=== PATIENT | female | born 1975 ===

== ENCOUNTER 2016-05-22 18:30 | Emergency (ER) | payer MEDICARE, OTHER ==
--- OUTSIDE RECORDS SUMMARY | 2016-05-22 19:20 | XMS REPORT | Continuity of Care Document ---
:1975 Author Organization [facility] [place] [address] Care Team Providers Name Role Phone Laura Mayberry Primary Care Provider [phone] Source Comments This disclosure is being made pursuant to the [employer] program and maynot contain all information available regarding this patient.[facility] Active Allergies and Adverse Reactions Allergen Noted Date Severity Reactions Comments Pcn 10/13/2015 High Hives Current Medications Be aware that medications may not be up to date as of this document. Alwaysverify current medications with the patient. Prescription Sig. Disp. Refills Start Date End Date Status montelukast Take 10 mg by Active (SINGULAIR) 10 MG mouth nightly. tablet albuterol (PROAIR Inhale 2 puffs Active HFA;PROVENTIL into the lungs HFA;VENTOLIN HFA) every 4 (four) 108 (90 BASE) hours as MCG/ACT inhaler needed for Wheezing. lisinopril Take 2.5 mg by Active (PRINIVIL,ZESTRIL) mouth daily. 2.5 MG tablet fenofibrate 160 MG Take 160 mg by Active tablet mouth daily. pantoprazole Take 40 mg by Active (PROTONIX) 40 MG mouth daily. tablet atorvastatin Take 40 mg by Active (LIPITOR) 40 MG mouth daily. tablet FLUoxetine (PROZAC) Take 20 mg by Active 20 MG capsule mouth daily. fluticasone 2 sprays by Active (FLONASE) 50 MCG/ACT Nasal route nasal spray daily. to each nostril latanoprost Place 1 drop Active (XALATAN) 0.005 % into both eyes ophthalmic solution nightly. fluPHENAZine Take 2.5 mg by Active (PROLIXIN) 2.5 MG mouth 2 (two) tablet times daily. insulin lispro Inject 12 Active (HUMALOG) 100 Units into the UNIT/ML injection - skin 3 (three) vial times daily with meals. insulin lispro Inject 2-12 Active (HUMALOG) 100 Units into the UNIT/ML injection - skin 4 (four) vial times daily before meals and nightly. 150-199=2 [id number]=1 [id number]=0 [id number]=3 [id number]=9 0 [id number] and higher=12 Units insulin glargine Inject 42 Active (LANTUS) 100 UNIT/ML Units into the injection - vial skin nightly. miconazole (MICOTIN) Apply to 71 g 0 05/11/2016 Active 2 % powder abdominal folds. propranolol Take 1 tablet 90 tablet 1 05/11/2016 Active (INDERAL) 10 MG by mouth 3 tablet (three) times daily. senna-docusate Take 1 tablet 60 tablet 1 05/11/2016 Active (SENNA PLUS) 8.6-50 by mouth 2 MG per tablet (two) times daily. hydrOXYzine Take 1 capsule 90 capsule 1 05/11/2016 Active (VISTARIL) 50 MG by mouth 3 capsule (three) times daily as needed for Anxiety. Indications: Sedation linagliptin Take 5 mg by 05/08/19 Discontinued (TRADJENTA) 5 MG mouth daily. 17 TABS tablet tiotropium (SPIRIVA) Place 18 mcg 05/08/19 Discontinued 18 MCG inhalation into inhaler 17 capsule and inhale daily. budesonide-formotero Inhale 2 puffs 05/08/19 Discontinued l (SYMBICORT) into the lungs 17 160-4.5 MCG/ACT 2 (two) times inhaler daily. cyclobenzaprine Take 10 mg by 05/08/19 Discontinued (FLEXERIL) 10 MG mouth 3 17 tablet (three) times daily as needed for Muscle spasms. senna-docusate Take 2 tablets 05/08/19 Discontinued 8.6-50 MG per tablet by mouth 17 nightly as needed for Constipation. vilazodone HCl Take 20 mg by 05/08/19 Discontinued (VIIBRYD) 20 MG TABS mouth daily. 17 tablet insulin detemir Inject 30 05/08/19 Discontinued (LEVEMIR) 100 Units into the 17 UNIT/ML injection - skin daily. vial insulin lispro Inject 10 05/08/19 Discontinued (HUMALOG) 100 Units into the 17 UNIT/ML injection - skin 2 (two) vial times daily. With lunch and supper Indications: Insulin-Depend ent Diabetes fluPHENAZine Take 2 tablets 60 tablet 1 10/20/2015 05/08/19 Discontinued (PROLIXIN) 1 MG by mouth 2 17 tablet (two) times daily. hydrOXYzine Take 1 capsule 120 capsule 1 10/20/2015 05/08/19 Discontinued (VISTARIL) 50 MG by mouth 4 17 capsule (four) times daily as needed for Anxiety. Indications: Sedation magnesium oxide Take 1 tablet 30 tablet 1 10/20/2015 05/08/19 Discontinued (MAG-OX) 400 (241.3 by mouth 17 MG) MG TABS tablet daily. quetiapine Take 1 tablet 30 tablet 1 10/20/2015 05/08/19 Discontinued (SEROQUEL) 200 MG by mouth Day 17 tablet One - 2100. traZODone (DESYREL) Take 1 tablet 30 tablet 1 10/20/2015 05/08/19 Discontinued 100 MG tablet by mouth 17 nightly. propranolol Take 1 tablet 90 tablet 1 10/20/2015 05/08/19 Discontinued (INDERAL) 10 MG by mouth 3 17 tablet (three) times daily. polyethylene glycol Take 17 g by 30 each 0 11/09/2015 05/08/19 Discontinued (GLYCOLAX) packet mouth daily. 17 fluPHENAZine Take 2.5 mg by 05/08/19 Discontinued (PROLIXIN) 2.5 MG mouth 3 17 tablet (three) times daily. Indications: Psychosis insulin lispro Inject 0-5 05/08/19 Discontinued (HUMALOG) 100 Units into the 17 UNIT/ML injection - skin 3 (three) vial times daily before meals. Indications: Insulin-Depend ent Diabetes buPROPion XL Take 300 mg by 05/11/19 Discontinued (WELLBUTRIN XL) 300 mouth every 17 MG 24 hr tablet morning. clonazePAM Take 0.5 mg by 05/08/19 Discontinued (KLONOPIN) 0.5 MG mouth 2 (two) 17 tablet times daily. clonazePAM Take 2 mg by 05/11/19 Discontinued (KLONOPIN) 2 MG mouth nightly. 17 tablet Active Problems Problem Noted Date MDD (major depressive disorder), severe ([facility]) 05/10/2016 Major depressive disorder, recurrent, severe without psychotic features 2015 ([facility]) COPD (chronic obstructive pulmonary disease) ([facility]) 10/14/2015 Diabetes ([facility]) 10/14/2015 Essential hypertension 10/14/2015 Most Recent Encounters Date Type Specialty Providers Description 03/22/2016 Data Import Immunizations Name Dates Previously Given Next Due PPD Test 11/06/2015 Social History Tobacco Use Types Packs/Day Years Used Date Current Every Day Smoker 0.5 5 Smokeless Tobacco: Never Used Tobacco Cessation:Ready to Quit: No Comments: Alcohol Use Drinks/Week oz/Week Comments No Last Filed Vital Signs Vital Sign Reading Time Taken Blood Pressure 126/82 05/11/2016 8:00 AM [facility] [employer] [facility] Pulse 84 05/11/2016 8:00 AM [employer] [facility] Temperature 36.1 C (97 F) 05/11/2016 8:00 AM [employer] [facility] Respiratory Rate 17 05/11/2016 8:00 AM [employer] [facility] Height 1.651 m (5' 5") 05/09/2016 4:57 AM [employer] [facility] Weight 113.6 kg (250 lb 7.1 oz) 05/09/2016 4:57 AM [employer] [facility] Body Mass Index 41.68 05/09/2016 4:57 AM [employer] [facility] Oxygen Saturation 94% 05/10/2016 9:16 AM [facility] [employer] [employer] [facility] Plan of Care Health Maintenance Due Date Last Done Comments Tetanus/Pertussis (1 - Tdap) 1993 Pap Smear 08/26/1995 Influenza Immunization (#1) 2015 Results from Last 3 Months POCT glucose (05/11/2016 8:22 AM)Only the most recent of11 resultswithin the time period is included. Component Value Range Glucose, POC 118(H) 70-99 mg/dL
--- OUTSIDE RECORDS SUMMARY | 2016-05-22 19:21 | XMS REPORT | Summary of Care ---
:1975 Author Organization Address [address] [place] [address]- Care Team Providers Name Role Phone CandieLaura carey Primary Care Physician Encounter Date(s): 09/07/15 - 09/07/15 [address] [place], [place] [address] Final: First degree hemorrhoids Final: Melena Final: Change in bowel habit Final: Diarrhea, unspecified Final: Type 2 diabetes mellitus without complications Discharge Disposition: 01 Discharged to Home or Self Care Attending Physician: Ignacio Pacheco DO Admitting Physician: Ignacio Pacheco DO Vital Signs Most recent to oldest [Reference 1 2 3 Range]: Temperature Temporal Artery [36-38 36.4 DegC 36.6 DegC DegC] (09/07/15 9:27 AM) (09/07/15 7:43 AM) Heart Rate Monitored [60-100 bpm] 95 bpm 101 bpm 98 bpm (09/07/15 9:54 AM) *HI* (09/07/15 9:35 AM) (09/07/15 9:40 AM) Respiratory Rate [12-20 br/min] 16 br/min 16 br/min 16 br/min (09/07/15 9:54 AM) (09/07/15 9:40 AM) (09/07/15 9:35 AM) SpO2 96 % 94 % 94 % (09/07/15 9:54 AM) (09/07/15 9:40 AM) (09/07/15 9:35 AM) SpO2 Location Right hand Right hand (09/07/15 9:54 AM) (09/07/15 7:43 AM) Blood Pressure [90-130/60-90 mmHg] 135/67mmHg 134/67mmHg 135/71mmHg *HI* *HI* *HI* (09/07/15 9:54 AM) (09/07/15 9:40 AM) (09/07/15 9:35 AM) Mean Arterial Pressure Monitor 87 mmHg 87 mmHg 93 mmHg Measure (09/07/15 9:40 AM) (09/07/15 9:35 AM) (09/07/15 9:30 AM) Most recent to oldest [Reference Range]: 1 2 3 Height/Length Estimated 164 cm 165.1 cm (09/07/15 7:43 AM) (09/06/15 11:56 AM) Weight Estimated 128.8 kg (09/06/15 11:56 AM) Weight Dosing 127.9 kg (09/07/15 7:43 AM) Weight Measured 127.9 kg (09/07/15 7:43 AM) Problem List Condition Effective Dates Status Health Status Informant DEPRESSIVE DISORDER, NOT ELSEWHERE Active CLASSIFIED(Confirmed) UNSPECIFIED ESSENTIAL Active HYPERTENSION(Confirmed) MIXED HYPERLIPIDEMIA(Confirmed) Active Morbid obesity(Confirmed) Active Oxygen(Confirmed) Active Pancreatitis(Confirmed) Active Emphysema/COPD(Confirmed) Active Diabetes mellitus without mention of Active complication, type II or unspecified type, not stated as uncontrolled(Confirmed) Allergies, Adverse Reactions, Alerts Substance Reaction Severity Status penicillins rash Active Medications Advair Diskus 100 mcg-50 mcg inhalation powder 1 puff(s), Inhale, BID, # 28 EA, 0 Refill(s), Start Date: 04/15/14 15:34:00 [employer] Start Date: 04/15/14 Stop Date: 07/14/15 Status: Completedalbuterol CFC free 90 mcg/inh inhalation aerosol 2 puff(s), Inhale, q6hr, PRN for wheezing, # 1 EA, 6 Refill(s), Start Date: 12/21 13:46:48 CDT, Pharmacy: [place], [place] Start Date: 07/15/14 Stop Date: 07/14/15 Status: Completedalbuterol CFC free 90 mcg/inh inhalation aerosol 2 puff(s), Inhale, q6hr, PRN for wheezing, # 18 gm, 0 Refill(s), Start Date: 11/20 15:35:00 [employer] Start Date: 04/15/14 Stop Date: 04/15/14 Status: Discontinuedalbuterol CFC free 90 mcg/inh inhalation aerosol 2 puff(s), Inhale, q6hr, PRN for wheezing, # 1 EA, 6 Refill(s), Start Date: 11/20 16:17:00 [employer], Pharmacy: [place], [place] Start Date: 04/15/14 Stop Date: 07/15/14 Status: Discontinuedatorvastatin 40 mg oral tablet 1 tab(s), Oral, Daily, 0 Refill(s), Start Date: 07/14/15 17:12:00 CDT Start Date: 07/14/15 Status: OrderedBentyl mg, 0 Refill(s), Start Date: 08/19/15 9:17:00 CDT Start Date: 08/19/15 Stop Date: 09/06/15 Status: CompletedCombivent Respimat CFC free 20 mcg-100 mcg/inh inhalation aerosol 1 puff(s), Inhale, QID, # 4 gm, 3 Refill(s), Start Date: 07/15/14 13:45:00 CDT, Pharmacy: [place], [place] Start Date: 07/15/14 Stop Date: 07/14/15 Status: Completedcyclobenzaprine 10 mg oral tablet 1 tab(s), Oral, TID, PRN for spasm, # 90 tab(s), 0 Refill(s), Start Date: 9:35:00 CDT, Pharmacy: [place], [place] Start Date: 07/17/15 Status: Orderedcyclobenzaprine 10 mg oral tablet 1 tab(s), Oral, TID, PRN for spasm, # 30 tab(s), 0 Refill(s), Start Date: 14:26:00 CDT Start Date: 07/14/15 Stop Date: 07/17/15 Status: Discontinueddicyclomine 10 mg oral capsule See Instructions, 1-2 cap(s) Oral QID 30 to 60 minutes before meals, # 60 cap(s ), 1 Refill(s), Start Date: 08/19/15 9:42:00 CDT, Pharmacy: [place], [place] Special Instructions: 1-2 cap(s) Oral QID 30 to 60 minutes before meals Start Date: 08/19/15 Status: Ordereddicyclomine 10 mg oral capsule 1 cap(s), Oral, TID, PRN as needed, 0 Refill(s), Start Date: 07/14/15 17:10:00 CDT Start Date: 07/14/15 Status: OrderedFlagyl 500 mg oral tablet 1 tab(s), Oral, q8hr interval, # 30 tab(s), 0 Refill(s), Start Date: 08/19/15 9: 42:00 CDT, Pharmacy: [place], [place] Start Date: 08/19/15 Stop Date: 09/06/15 Status: CompletedfluPHENAZine 5 mg oral tablet See Instructions, 1 in am 2 in pm, 0 Refill(s), Start Date: 04/15/14 15:35:00 [employer] Special Instructions: 1 in am 2 in pm Start Date: 04/15/14 Stop Date: 07/14/15 Status: Completedgabapentin 300 mg/24 hours oral tablet, extended release 1 tab(s), Oral, Daily, # 90 tab(s), 0 Refill(s), Start Date: 07/14/15 20:07:00 CDT Start Date: 07/14/15 Status: Orderedgabapentin 300 mg/24 hours oral tablet, extended release 3 tab(s), Oral, Daily, # 90 tab(s), 0 Refill(s), Start Date: 07/14/15 14:26:00 CDT Start Date: 07/14/15 Stop Date: 07/14/15 Status: Discontinuedglimepiride 2 mg oral tablet 1 tab(s), Oral, Daily, # 30 tab(s), 0 Refill(s), Start Date: 04/15/14 15:35:00 [employer] Start Date: 04/15/14 Stop Date: 07/14/15 Status: Completedglimepiride 4 mg oral tablet 1 tab(s), Oral, Daily, # 30 tab(s), 0 Refill(s), Start Date: 07/14/15 14:27:00 CDT Start Date: 07/14/15 Stop Date: 07/14/15 Status: DiscontinuedHumaLOG KwikPen 100 units/mL subcutaneous solution 10 units, Subcutaneous, BIDAC, # 3 mL, 0 Refill(s), Start Date: 07/14/15 14:28: 00 CDT Start Date: 07/14/15 Status: OrderedHYDROcodone-acetaminophen 5 mg-325 mg oral tablet 1 tab(s), Oral, q4hr, PRN for pain, Dispense, # 4 tab(s), 0 Refill(s), Start Date: 07/29/15 0:31:00 CDT Special Instructions: Dispense Start Date: 07/29/15 Stop Date: 08/04/15 Status: CompletedHYDROcodone-acetaminophen 5 mg-325 mg oral tablet 1 tab(s), Oral, q4hr, PRN for pain, # 20 tab(s), 0 Refill(s), Start Date: 0:30:00 CDT Start Date: 07/29/15 Stop Date: 08/04/15 Status: CompletedLaMICtal 200 mg oral tablet 1 tab(s), Oral, qAM, 0 Refill(s), Start Date: 07/14/15 17:15:00 CDT Start Date: 07/14/15 Stop Date: 09/06/15 Status: CompletedLaMICtal 200 mg oral tablet 1.5 tab(s), Oral, BID, 0 Refill(s), Start Date: 07/14/15 17:16:00 CDT Start Date: 07/14/15 Status: OrderedLaMICtal 200 mg oral tablet 1 tab(s), Oral, BID, # 180 tab(s), 0 Refill(s), Start Date: 07/14/15 14:25:00 CDT Start Date: 07/14/15 Stop Date: 07/14/15 Status: Completedlatanoprost 0.005% ophthalmic solution 1 drop(s), Eye-Both, HS, # 3 mL, 0 Refill(s), Start Date: 07/14/15 17:14:00 CDT Start Date: 07/14/15 Status: OrderedLatuda 120 mg oral tablet 1 tab(s), Oral, Daily, # 30 tab(s), 0 Refill(s), Start Date: 07/14/15 14:26:00 CDT Start Date: 07/14/15 Stop Date: 07/14/15 Status: DiscontinuedLatuda 20 mg oral tablet 1 tab(s), Oral, HS, # 30 tab(s), 0 Refill(s), Start Date: 07/14/15 18:11:00 CDT Start Date: 07/14/15 Status: OrderedLevemir 100 units/mL subcutaneous solution 20 units, Subcutaneous, Daily, # 10 mL, 0 Refill(s), Start Date: 07/14/15 14:28: 00 CDT Start Date: 07/14/15 Stop Date: 07/14/15 Status: DiscontinuedLevemir 100 units/mL subcutaneous solution 30 units, Subcutaneous, Daily, # 15 mL, 0 Refill(s), Start Date: 07/14/15 18:09: 00 CDT Start Date: 07/14/15 Status: Orderedlisinopril See Instructions, Dr. Art ordered, 0 Refill(s), Start Date: 07/15/14 13:35 :00 CDT Special Instructions: Dr. Art ordered Start Date: 07/15/14 Stop Date: 07/14/15 Status: Completedlisinopril 2.5 mg oral tablet 1 tab(s), Oral, Daily, 0 Refill(s), Start Date: 07/14/15 17:12:00 CDT Start Date: 07/14/15 Status: OrderedLORazepam 0.5 mg oral tablet 1 tab(s), Oral, BID, PRN as needed for anxiety, 0 Refill(s), Start Date: 15:36:00 [employer] Start Date: 04/15/14 Stop Date: 09/06/15 Status: CompletedLORazepam 1 mg oral tablet 1 tab(s), Oral, BID, PRN as needed for anxiety, 0 Refill(s), Start Date: 11:59:00 CDT Start Date: 09/06/15 Status: OrderedMedrol Dosepak 4 mg oral tablet 1 packet(s), Oral, Per Package Label, as directed on package labeling, # 21 tab( s), 0 Refill(s), Start Date: 04/15/14 16:18:00 [employer], Pharmacy: [place], [place] Special Instructions: as directed on package labeling Start Date: 04/15/14 Stop Date: 07/15/14 Status: Completedmethocarbamol 750 mg oral tablet 1 tab(s), Oral, TID, 0 Refill(s), Start Date: 07/14/15 17:11:00 CDT Start Date: 07/14/15 Stop Date: 07/17/15 Status: DiscontinuedMiraLax oral powder for reconstitution 17 gm=, Oral, Daily, dissolve in water before taking, X 14 days, # 238 gm, 0 Refill(s), Start Date: 08/02/15 21:12:00 CDT Special Instructions: dissolve in water before taking Start Date: 08/02/15 Stop Date: 08/16/15 Status: Completednabumetone 500 mg oral tablet 1 tab(s), Oral, Daily, # 30 tab(s), 0 Refill(s), Start Date: 07/17/15 9:35:00 CDT, Pharmacy: [place], [place] Start Date: 07/17/15 Status: Orderednabumetone 500 mg oral tablet 1 tab(s), Oral, Daily, # 30 tab(s), 0 Refill(s), Start Date: 07/14/15 14:26:00 CDT Start Date: 07/14/15 Stop Date: 07/17/15 Status: DiscontinuedOne Touch UltraSoft Lancets 0 Refill(s), Supply Start Date: 07/14/15 Stop Date: 07/14/15 Status: CompletedOne Touch Verio IQ Test Strips 200 EA, Subcutaneous, BID, # 2 boxes, 0 Refill(s), Supply Start Date: 07/14/15 Stop Date: 07/14/15 Status: CompletedPhillips Milk of Magnesia 311 mg oral tablet, chewable 4 tab(s), Chewed, Daily, PRN for constipation, # 100 tab(s), 1 Refill(s), Start Date: 09/14/15 13:53:00 CDT, Pharmacy: [place], [place] Start Date: 09/14/15 Status: OrderedPROzac 20 mg oral capsule 3 cap(s), Oral, Daily, # 30 cap(s), 0 Refill(s), Start Date: 07/14/15 14:25:00 CDT Start Date: 07/14/15 Status: OrderedPROzac 40 mg oral capsule 1 cap(s), Oral, Daily, # 30 cap(s), 0 Refill(s), Start Date: 04/15/14 15:36:00 [employer] Start Date: 04/15/14 Stop Date: 07/14/15 Status: Completedranitidine 300 mg oral capsule 1 cap(s), Oral, HS, # 30 cap(s), 0 Refill(s), Start Date: 07/17/15 9:35:00 CDT, Pharmacy: [place], [place] Start Date: 07/17/15 Stop Date: 07/17/15 Status: Discontinuedranitidine 300 mg oral capsule 1 cap(s), Oral, HS, # 30 cap(s), 0 Refill(s), Start Date: 07/14/15 14:28:00 CDT Start Date: 07/14/15 Stop Date: 07/17/15 Status: Discontinuedranitidine 300 mg oral capsule 1 cap(s), Oral, BID, # 30 cap(s), 0 Refill(s), Start Date: 07/17/15 9:38:55 CDT , Pharmacy: [place], [place] Start Date: 07/17/15 Status: Orderedsenna 8.6 mg oral tablet 2 tab(s), Oral, HS, PRN for constipation, # 100 tab(s), 1 Refill(s), Start Date : 09/14/15 13:54:00 CDT, Pharmacy: [place], [place] Start Date: 09/14/15 Status: OrderedSenokot 8.6 mg oral tablet 2 tab(s), Oral, HS, # 60 tab(s), 0 Refill(s), Start Date: 07/17/15 9:36:00 CDT, Pharmacy: [place], [place] Start Date: 07/17/15 Status: OrderedSEROquel See Instructions, Dr. Boston ordered, 0 Refill(s), Start Date: 07/15/14 13: 33:00 CDT Special Instructions: Dr. Boston ordered Start Date: 07/15/14 Stop Date: 07/14/15 Status: CompletedSEROquel 100 mg oral tablet 1 tab(s), Oral, TID, # 270 tab(s), 0 Refill(s), Start Date: 07/14/15 14:25:00 CDT Start Date: 07/14/15 Stop Date: 07/14/15 Status: CompletedSEROquel 100 mg oral tablet 1 tab(s), Oral, qAM, # 270 tab(s), 0 Refill(s), Start Date: 07/14/15 18:13:00 CDT Start Date: 07/14/15 Status: OrderedSEROquel 300 mg oral tablet 1 tab(s), Oral, HS, 0 Refill(s), Start Date: 07/14/15 17:15:00 CDT Start Date: 07/14/15 Status: OrderedTessalon Perles 100 mg oral capsule 1 cap(s), Oral, TID, # 30 cap(s), 0 Refill(s), Start Date: 04/15/14 16:18:00 [facility] , Pharmacy: [place], [place] Start Date: 04/15/14 Stop Date: 07/14/15 Status: CompletedTradjenta 5 mg oral tablet 1 tab(s), Oral, Daily, # 30 tab(s), 0 Refill(s), Start Date: 07/14/15 14:29:00 CDT Start Date: 07/14/15 Status: OrderedtraZODone 100 mg oral tablet 1 tab(s), Oral, HS, PRN sleep, # 90 tab(s), 0 Refill(s), Start Date: 07/15/14 13 :31:00 CDT Start Date: 07/15/14 Status: OrderedWellbutrin See Instructions, 1 in AM, 0 Refill(s), Start Date: 07/15/14 13:32:00 CDT Special Instructions: 1 in AM Start Date: 07/15/14 Stop Date: 07/14/15 Status: CompletedWellbutrin XL 300 mg/24 hours oral tablet, extended release 1 tab(s), Oral, Daily, 0 Refill(s), Start Date: 07/14/15 17:09:00 CDT Start Date: 07/14/15 Status: OrderedZocor 20 mg oral tablet 1 tab(s), Oral, HS, # 30 tab(s), 0 Refill(s), Start Date: 04/15/14 15:36:00 [employer] Start Date: 04/15/14 Stop Date: 07/14/15 Status: CompletedZofran 4 mg oral tablet 1 tab(s), Oral, q8hr interval, PRN as needed for nausea/vomiting, 0 Refill(s), Start Date: 08/19/15 9:17:00 CDT Start Date: 08/19/15 Status: OrderedZofran ODT 4 mg oral tablet, disintegrating 1 tab(s), Oral, q4hr, PRN nausea/vomiting, X 4 days, # 24 tab(s), 0 Refill(s), Start Date: 08/02/15 21:12:00 CDT Start Date: 08/02/15 Stop Date: 08/06/15 Status: Completed Results Patient Viewable Results Most recent to oldest [Reference 1 2 3 Range]: AN - Fi O2 21 % % 21 % % 71 % % (09/07/15 9:25 AM) (09/07/15 9:20 AM) (09/07/15 9:15 AM) Estimated Creatinine Clearance 153.48 mL/min (09/07/15 7:50 AM) Whole Blood Glucose [70-108 mg/dL] 163 mg/dL1 *HI* (09/07/15 8:00 AM) 1Result Comment: Lance Crewmember: [id number] Tamica Fatima RN Immunizations No data available for this section Procedures Procedure Date Related Diagnosis Body Site Colonoscopy1 09/07/15 Esophagogastroduodenoscopy2 07/15/15 Appendectomy section Cholecystectomy Hernia repair Hysterectomy 1auto-populated from documented surgical [id number] from documented surgical case Social History No data available for this section Assessment and Plan No data available for this section
--- OUTSIDE RECORDS SUMMARY | 2016-05-22 19:21 | XMS REPORT | Continuity of Care Document ---
:1975 Author Organization [facility] ([facility]) Address [place] [address] Phone [phone] Care Team Providers Name Role Phone Laura Mayberry Primary Care Provider [phone] Source Comments This disclosure is being made pursuant to the Care Everywhere program, applicable federal and state laws, and may not contain all informaitonavailable regarding this patient.[facility] ([facility]) Active Allergies and Adverse Reactions Allergen Noted Date Severity Reactions Comments Penicillins 06/20/2010 Rash Current Medications Prescription Sig. Disp. Refills Start Date End Date Status albuterol 90 Use 2 Puffs by inhalation Active mcg/Actuation every 6 hours as needed. inhaler Indications: ACUTE ASTHMA ATTACK lisinopril 10 mg Take 10 mg by mouth daily. Active tablet Indications: HYPERTENSION fluticasone-salmet Use 1 Puff by inhalation Active lora (ADVAIR every 12 hours as needed. 100-50) inhaler Indications: Asthma Attack hydrOXYzine Take 50 mg by mouth every Active pamoate 50 mg 8 hours as needed capsule (agitation). Indications: Agitation lamoTRIgine 100 mg Take 100 mg by mouth 2 Active tablet times daily. Indications: DEPRESSION ASSOCIATED WITH MANIC DEPRESSIVE DISORDER simvastatin 20 mg Take 20 mg by mouth every Active tablet evening. Indications: HYPERCHOLESTEROLEMIA FLUoxetine 20 mg Take 3 Caps by mouth 90 Cap 1 12/22/2013 Active capsule daily. Indications: MAJOR DEPRESSIVE DISORDER sennoside-docusate Take 1 tablet by mouth as Active sodium 8.6-50 mg needed. per tablet QUEtiapine 200 mg Take 200 mg by mouth 10/20/2015 Active tablet daily. polyethylene Take 17 g by mouth as 11/09/2015 Active glycol 3350 17 needed. gram packet pantoprazole 40 mg Take 40 mg by mouth daily. Active EC tablet magnesium oxide Take 400 mg by mouth 10/20/2015 Active 400 mg tablet daily. linagliptin Take 5 mg by mouth daily. Active (TRADJENTA) 5 mg tablet insulin lispro Inject 15 Units Active (HumaLOG) 100 subcutaneously 3 times unit/mL injection daily. vial insulin detemir Inject 45 Units Active (LEVEMIR) 100 subcutaneously 3 times unit/mL injection daily. vial fluPHENAZine 1 mg Take 2 mg by mouth as 10/20/2015 Active tablet needed. fenofibrate 160 mg Take 160 mg by mouth Active tablet daily. Active Problems Problem Noted Date Borderline personality disorder 12/21/2013 High body mass index 12/18/2013 Morbid obesity 12/18/2013 Hydronephrosis 03/04/2006 Hemorrhage of gastrointestinal tract, unspecified 03/01/2006 Jaundice, unspecified, not of 03/01/2006 Nausea with vomiting 03/01/2006 Diarrhea 03/01/2006 Abdominal pain, unspecified site 03/01/2006 Foreign body in digestive system, unspecified 03/01/2006 Social History Tobacco Use Types Packs/Day Years Used Date Current Every Day Smoker Cigarettes 1 20 Smokeless Tobacco: Never Used Alcohol Use Drinks/Week oz/Week Comments No Last Filed Vital Signs Vital Sign Reading Time Taken Blood Pressure 144/92 01/16/2016 1:36 PM CDT Pulse 113 01/16/2016 1:36 PM CDT Temperature 36.8 C (98.2 F) 01/16/2016 1:36 PM CDT Respiratory Rate 18 12/19/2013 6:42 AM CDT Height 1.651 m (5' 5") 01/16/2016 1:36 PM CDT Weight 125.25 kg (276 lb 2 oz) 01/16/2016 1:36 PM CDT Body Mass Index 45.95 01/16/2016 1:36 PM CDT Oxygen Saturation 94% 12/19/2013 4:50 AM CDT Plan of Care Date Type Specialty Providers Description 07/16/2016 Appointment Med GI/Hepatology Shahram Vines, Chief Comp: Patient MD Reported Reason For [address] [place] [address] [phone] (Fax) Health Maintenance Due Date Last Done Comments Hepatitis B Vaccine (1 of 3 - Primary Series) 1975 Tdap Vaccine 1985 Lipid Disorder Screening 1992 MMR Vaccine 1992 Td Vaccine 1992 Pneumococcal Vaccine (1 of 1 - PPSV23) 1993 Cervical Cancer Screening 03/04/2009 03/04/2006 Mammogram 2014 Influenza Vaccine: Seasonal (#1) 11/07/2015 Results from Last 3 Months Not on file
--- NOTE | 2016-05-22 19:23 | ERNOTE ---
<Geraldine Ferrraa - Last Filed: 05/22/16 20:32> Psychological HPI - General Chief Complaint: Psychiatric Problem Source: Reports: patient Exam Limitations: Reports: no limitations - Immun/Allergies/Home Medications Allergies/Adverse Reactions: Allergies Penicillins Allergy (Verified 07/11/15 18:02) Home Medications: HOME MEDICATIONS Latanoprost [Xalatan] 1 drop OP HS 12/21/14 [Last Taken Unknown] Lisinopril [Zestril] 2.5 mg PO DAILY 12/21/14 [Last Taken Unknown] Albuterol Sulfate [Proair Hfa] 2 puff IH QID PRN 05/22/16 [Last Taken Unknown] Atenolol [Tenormin] 50 mg PO DAILY 05/22/16 [Last Taken Unknown] Atorvastatin Calcium [Lipitor] 40 mg PO HS 05/22/16 [Last Taken Unknown] Clonazepam 2 mg PO HS 05/22/16 [Last Taken Unknown] Fenofibrate [Lofibra] 160 mg PO DAILY 05/22/16 [Last Taken Unknown] Fluphenazine HCl 2.5 mg PO BID PRN 05/22/16 [Last Taken Unknown] Fluticasone Propionate [Flonase] 2 spray NS DAILY 05/22/16 [Last Taken Unknown] Insulin Glargine,Hum.rec.anlog [Lantus] 41 unit SQ HS 05/22/16 [Last Taken Unknown] Insulin Lispro [Humalog] 100 unit SQ 05/22/16 [Last Taken Unknown] Pantoprazole Sodium 40 mg PO HS 05/22/16 [Last Taken Unknown] Sennosides/Docusate Sodium [Senna-Docusate Sodium Tablet] 1 each PO BID [Last Taken Unknown] hydrOXYzine PAMOATE [Hydroxyzine Pamoate] 50 mg PO TID PRN 05/22/16 [Last Taken Unknown] - History of Present Illness Narrative: Patient has been hearing voices that tell her to kill herself for about two months, during that time she has been admitted to inpatient psychiatric facilities three time. Each time her medications were changed, during one admission she was also diagnosed with pancreatitis which had resolved. For about two days things have been getting worse again. The voices are telling her to kill herself by overdosing on pills or cutting herself, but not to kill other people. She denies taking any extra medication, has not overdosed in years and usually just cuts for pain relieve. 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 She also has abdominal pain again that reminds her of her pancreatitis. She has had a tremor in both hands and to a lesser degree in her legs for about a week, it improves with intentional movement Time Seen by Provider: 05/22/16 19:04 Arrived by: Reports: private car Onset/duration: Reports: gradual onset Situational Problems: Denies: spouse, recent Associated Symptoms: Reports: depressed, hallucinating, specific plan Prior Treament: Reports: recently seen, similar symptoms before Review of Systems - Review of Systems Constitutional: Present: recent illness. Absent: fever EYE: Absent: vision changes ENT: Absent: nasal drainage, sore throat Respiratory: Absent: shortness of breath, cough Cardiology: Absent: chest pain Gastrointestinal/Abdominal: Present: nausea, abdominal pain. Absent: vomiting, diarrhea Genitourinary: Present: no symptoms reported Musculoskeletal: Present: no symptoms reported Neurological: Absent: headache, weakness, numbness - Patient's Past Medical History Patient History - Medical: Anxiety, Diabetes Type 2 Insulin Dependent, Depression, Other Patient History - Cardiac/Respiratory: Hypertension Patient History - Cancer: No Hx of Cancer Patient History - Surgical Procedures: Appendectomy, Cholecystectomy, , Hysterectomy Patient History - Other: None - Social History Living Situations: spouse Abuse History: No History of abuse Psych History: Hx of Anxiety, Hx of Depression, Hx of Bipolar Disorder Smoking Status: Current every day smoker Do you dip or chew tobacco: No Alcohol Use: none Drug Use: none - Immunizations Immunizations Up to Date: Yes Hx Pneumococcal Vaccination: Yes History of Influenza Vaccine: Yes Physical Exam - Physical Exam General Appearance: Present: wd/wn, alert, no apparent distress Eye Exam: Normal inspection: bilateral, PERRL: bilateral Ears, Nose, Throat: Present: normal pharynx Respiratory: Present: no respiratory distress, normal breath sounds, no accessory muscle use, lungs clear Cardiovascular/Chest: Present: regular rate, rhythm, no murmur Gastrointestinal/Abdominal: Present: nondistended, soft, tenderness - upper midabdomen Extremity Exam: Present: normal inspection, non-tender, other - no signs of injury Neurological Exam: Present: alert, oriented, other - flat affect Skin Exam: Present: normal color, warm/dry ED Progress - Results and Orders Patient's Lab Results:: I have reviewed the patient's lab results. - Vital Signs Patient's Vital Signs:: I have reviewed the patient's vital signs. Vital Signs: Vital Signs 05/22/16 18:36 Temperature 36.2 C L Pulse Rate 80 Respiratory 16 Rate Blood Pressure 119/81 O2 Sat by Pulse 96 Oximetry - Progress/Reassessment Chief Complaint: Psychiatric Problem - Transfer of Care Physician Sign Out: Geraldine Ferrara Receiving Physician: José Miguel Andrews Expected Disposition: Transfer Departure Clinical Impression: Suicidal ideation Depression Qualifiers: Depression Type: unspecified Qualified Code(s): F32.9 - Major depressive disorder, single episode, unspecified - Departure Disposition: [facility] in [place] Condition: Fair Referrals: Laura Mayberry ARNP [Primary Care Provider] - <José Miguel Andrews - Last Filed: 05/23/16 07:37> ED Progress - Results and Orders Patient's Lab Results:: I have reviewed the patient's lab results. Results and Orders: Laboratory Tests 05/22/16 05/22/16 05/22/16 19:32 19:32 19:44 WBC 15.1 H Hgb 17.0 H Hct 52.5 H Plt Count 301 Sodium 139 Potassium 4.5 Chloride 105 Carbon Dioxide 23.4 L BUN 17 Creatinine 0.67 Random Glucose 126 H Calcium 9.7 Total Bilirubin 0.3 AST 44 ALT 70 H Alkaline Phosphatase 91 Total Protein 7.9 Albumin 3.6 Amylase 47 Lipase 325 Urine Color Yellow Urine Appearance Clear Urine pH 6.0 Ur Specific [place] 1.025 Urine Protein 30 H Urine Glucose (UA) Negative Urine Ketones Negative Urine Blood Negative Urine Nitrate Negative Urine Bilirubin Negative Prot Sulfosalicylic Acd 1+ Urine Urobilinogen Normal Ur Leukocyte Esterase Negative Urine RBC None seen Urine WBC 0-5 Ur Epithelial Cells 5-10 H Urine Bacteria 1+ H Urine Culture Comments No culture indicated Salicylates Less than 2.8 L Urine Opiates Screen Acetaminophen Less than 0.2 L Barbiturate Screen Ur Phencyclidine Scrn Urine Amphetamine U Benzodiazepines Scrn Urine Cocaine Screen Urine Marijuana (THC) Ethyl Alcohol Less than 3.0 05/22/16 19:44 WBC Hgb Hct Plt Count Sodium Potassium Chloride Carbon Dioxide BUN Creatinine Random Glucose Calcium Total Bilirubin AST ALT Alkaline Phosphatase Total Protein Albumin Amylase Lipase Urine Color Urine Appearance Urine pH Ur Specific [place] Urine Protein Urine Glucose (UA) Urine Ketones Urine Blood Urine Nitrate Urine Bilirubin Prot Sulfosalicylic Acd Urine Urobilinogen Ur Leukocyte Esterase Urine RBC Urine WBC Ur Epithelial Cells Urine Bacteria Urine Culture Comments Salicylates Urine Opiates Screen Negative Acetaminophen Barbiturate Screen Negative Ur Phencyclidine Scrn Negative Urine Amphetamine Negative U Benzodiazepines Scrn Negative Urine Cocaine Screen Negative Urine Marijuana (THC) Negative Ethyl Alcohol - Vital Signs Patient's Vital Signs:: I have reviewed the patient's vital signs. Vital Signs: Vital Signs 05/22/16 18:36 Temperature 36.2 C L Pulse Rate 80 Respiratory 16 Rate Blood Pressure 119/81 O2 Sat by Pulse 96 Oximetry - CT/Ultrasound CT/Ultrasound Narrative: CT abd/ pelvis with IV and oral contrast: Hepatomegaly and diffuse hepatic steatosis. No acute changes. no obstruction, pancreas appears normal. - Progress/Reassessment Progress Note-Subjective: 05/22/16 21:[address] Ferrara at 20:00. Pt here due to hearing voices that tell her to kill herself. She also has diffuse abdominal pain and a WBC of 15, 000, no shift. pancreatic enzymes are normal. 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 05/22/16 21:24 05/23/16 07:33 Spoke with [facility] staff around 05;30 about EKG changes that they saw when she was there last month. They requested new EKG to see if they resolved with med changes. EKG done and shows resolution of previous changes. [facility] agrees to accept the patient
[2016-05-22 19:33] LABS: Hematocrit 52.5 % (37.0-47.0); Mean Cell Volume 95.1 fl (78-100); Mean Corpuscular Hemoglobin 30.8 pg (27-31); Mean Corpuscular Hgb Conc 32.4 g/dl (32-36); Mean Platelet Volume 10.7 fl (6.0-9.5); Platelet Count 301 K/mm3 (150-450); Red Blood Count 5.52 M/mm3 (4.2-5.4); Red Cell Distribution Width 13.1 % (11.5-14.0); White Blood Count 15.1 K/mm3 (4.0-10.5)
[2016-05-22 19:49] LABS: ALT 70 U/L (19-67); AST 44 U/L (0-48); Albumin * 3.6 gm/dl (3.4-5.0); Alkaline Phosphatase * 91 U/L (50-170); Amylase * 47 U/L (25-115); Anion Gap 15.1 mmol/L (6.8-13.8); Bilirubin, Total 0.3 mg/dL (0.0-1.1); Carbon Dioxide 23.4 mmol/L (24-32.6); Chloride 105 mmol/L (97-106); Lipase 325 U/L (73-393); Potassium 4.5 mmol/L (3.4-4.6); Sodium 139 mmol/L (132-142); Total Protein 7.9 gm/dL (6.2-8.2)
[2016-05-22 20:01] LABS: BUN/Creatinine Ratio 25.4 (9.0-21.6); Blood Urea Nitrogen 17 mg/dL (3-23); Ca. Corrected For Albumin 9.7 mg/dL (8.4-10.2); Calcium * 9.7 mg/dL (7.9-10.9); Glucose * 126 mg/dL (70-110); Salicylate Less than 2.8 mg/dL (2.8-20.0)
[2016-05-22 20:01] LABS: Urine Bilirubin Negative (NEGATIVE); Urine Blood Negative /ul (NEGATIVE); Urine Ketone Negative (NEGATIVE); Urine Nitrite Negative (NEGATIVE); Urine Protein 30 mg/dL (NEGATIVE); Urine Specific Gravity 1.025 SP.GR. (1.005-1.010); Urine Urobilinogen Normal (NORMAL)
[2016-05-22 20:02] LABS: Total Cells Counted 100
[2016-05-22 20:05] LABS: Atypical (Reactive) Lymph 2 % (0-2); Eosinophil 1 % (0-3); Lymphocyte 38 % (20-51); Monocyte 4 % (0-9); Neutrophil 55 % (42-75); Neutrophil # 8.3 K/mm3 (1.3-6.0)
[2016-05-22 20:07] LABS: Platelet Estimate Normal (NORMAL); RBC Morphology Normal (NORMAL)
[2016-05-22 20:12] LABS: Urine Appearance Clear; Urine Color Yellow; Urine WBC 0-5 /hpf (0-5)
[2016-05-22 20:13] LABS: Urine Bacteria 1+; Urine RBC None Seen /hpf (0-5)
[2016-05-22 20:16] LABS: Cocaine Ur Negative (NEGATIVE); Urine Barbiturate Negative (NEGATIVE); Urine Benzodiazepines Negative (NEGATIVE); Urine Opiates Negative (NEGATIVE); Urine PCP Negative (NEGATIVE); Urine THC Negative (NEGATIVE)
[2016-05-22] MEDS ORDERED: DIATRIZOATE MEGLU/DIATRIZO SOD 30 ML BTL ONE (20:57)
[2016-05-22] MEDS ORDERED: ONDANSETRON 4 MG TAB.RAPDIS ONE (21:48)
[2016-05-22] MEDS ORDERED: ONDANSETRON 4 MG TAB.RAPDIS PO ONE (21:52)
[2016-05-23 08:20] VITALS: BP 93/54
== END 2016-05-23 08:25 | disposition short-term general hospital (02) ==
LOC: ER 18:30
DX: R45.851 Suicidal ideations (principal); F32.9 Major depressive disorder, single episode, unspecified; E11.9 Type 2 diabetes mellitus without complications; Z79.4 Long term (current) use of insulin; F41.8 Other specified anxiety disorders; I10 Essential (primary) hypertension; Z72.0 Tobacco use
CPT/HCPCS: 36415; 74177; 80053; 80307; 81001; 82150; 83690; 85025; 93005; 99284; G0480; G0481

== ENCOUNTER 2016-07-24 17:29 | Emergency (ER) | payer MEDICARE, OTHER ==
[2016-07-24 17:41] VITALS: BP 141/88
[2016-07-24] MEDS ORDERED: NORMAL SALINE 1,000 ML IV ONE (17:58)
--- OUTSIDE RECORDS SUMMARY | 2016-07-24 18:02 | XMS REPORT | Continuity of Care Document ---
:1975 Author Organization [facility] [facility] [place] [address] Phone [phone] Care Team Providers Name Role Phone Unavailable Primary Care Provider Unavailable Active Allergies and Adverse Reactions Allergen Noted Date Severity Reactions Comments Penicillins 08/02/2010 Current Medications Always verify current medications with the patient because some medications mayno longer be current as of this document. Prescription Sig. Disp. Refills Start Date End Date Status lisinopril (PRINIVIL, Take 10 mg by mouth Active ZESTRIL) 10 MG tablet daily. simvastatin (ZOCOR) Take 20 mg by mouth 08/03/2010 Active 20 MG tablet daily. lamotrigine Take 200 mg by 08/03/2010 Active (LAMICTAL) 100 MG mouth 2 times tablet daily. benztropine Take 1 mg by mouth Active (COGENTIN) 1 MG 2 times daily. tablet glimepiride (AMARYL) Take 2 mg by mouth 08/03/2010 Active 2 MG tablet daily. furosemide (LASIX) 20 Take 20 mg by mouth 08/03/2010 Active MG tablet daily. pioglitazone (ACTOS) Take 30 mg by mouth Active 30 MG tablet daily. lorazepam (ATIVAN) Take 0.5 mg by 08/03/2010 Active 0.5 MG tablet mouth 2 times daily as needed. citalopram (CELEXA) Take 40 mg by mouth Active 40 MG tablet daily. quetiapine (SEROQUEL Take 200 mg by 08/03/2010 Active XR) 200 MG XR tablet mouth 3 times daily. nystatin (NYSTOP) Apply topically 2 08/04/2010 Active 832310 UNIT/GM POWD times daily. Have pharmacy label the bottle for outpatient use. albuterol (PROVENTIL Inhale 2 Puffs as 1 Inhaler 0 08/04/2010 Active HFA, VENTOLIN HFA) directed 3 times 108 (90 BASE) MCG/ACT daily. inhaler ibuprofen (MOTRIN) Take 1 Tab by mouth 30 Tab 08/04/2010 Active 400 MG tablet every 6 hours as needed for Pain. Active Problems Problem Noted Date Morbid obesity (HCC) 08/03/2010 Diabetes mellitus, type II (HCC) 08/03/2010 Depression 08/03/2010 Suicidal ideation 08/03/2010 Borderline personality disorder 08/03/2010 Social History Tobacco Use Types Packs/Day Years Used Date Never Assessed Last Filed Vital Signs Vital Sign Reading Time Taken Blood Pressure 121/68 08/04/2010 6:28 AM CDT Pulse 109 08/04/2010 6:28 AM CDT Temperature 35.9 C (96.7 F) 08/04/2010 6:22 AM CDT Respiratory Rate 17 08/04/2010 6:22 AM CDT Height 1.651 m (5' 5") 08/02/2010 8:03 PM CDT Weight 137.44 kg (303 lb) 08/03/2010 6:46 AM CDT Body Mass Index 50.42 08/03/2010 6:46 AM CDT Oxygen Saturation - - Plan of Care Health Maintenance Due Date Last Done Comments [facility] Dilated Eye Exam 1974 [facility] Foot Exam 1974 [facility] Lipid Exam 1974 [facility] Microalbumin Or Urine Creat Ratio 1974 [facility] Dtap/Tdap/Td Vaccines (1 - Tdap) 1993 [facility] Lipid Disorder Screening 1994 [facility] Cervical Cancer Screening 08/26/1995 [facility] Dm Hemoglobin A1c 02/02/2011 08/03/2010 [facility] Breast Cancer Screening 2014 [facility] Influenza 11/06/2016 [facility] Zoster (#1) 2034 Results from Last 3 Months Not on file
--- OUTSIDE RECORDS SUMMARY | 2016-07-24 18:02 | XMS REPORT | Continuity of Care Document ---
:1975 Author Organization [facility] ([facility]) Address [place] [address] Phone [phone] Care Team Providers Name Role Phone Laura Mayberry Primary Care Provider [phone] Source Comments This disclosure is being made pursuant to the Care Everywhere program, applicable federal and state laws, and may not contain all informaitonavailable regarding this patient.[facility] ([facility]) Active Allergies and Adverse Reactions Allergen Noted [...] Foreign body in digestive system, unspecified 03/01/2006 Most Recent Encounters Date Type Specialty Providers Description 07/16/2016 Office Visit Med GI/Hepatology Shahram Vines, Chief Comp: Patient MD Reported Reason For Visit Social History Tobacco Use Types Packs/Day Years [...] 12/19/2013 4:50 AM CDT Plan of Care Health Maintenance Due Date Last Done Comments Hepatitis B Vaccine (1 of 3 - Primary Series) 1975 Tdap Vaccine 1985 Lipid Disorder Screening 1992 MMR Vaccine 1992 Td Vaccine 1992 Pneumococcal Vaccine (1 of 1 - PPSV23) 1993 Cervical Cancer Screening 03/04/2009 03/04/2006 Mammogram 2014 Influenza Vaccine: Seasonal (Season Ended) 2016 Results from Last 3 Months Not on file
--- OUTSIDE RECORDS SUMMARY | 2016-07-24 18:02 | XMS REPORT | Continuity of Care Document ---
:1975 Author Organization [facility] [place] [address] Care Team Providers Name Role Phone Laura Mayberry Primary Care Provider [phone] Source Comments This disclosure is being made pursuant to the Communication Science program and maynot contain all information available regarding this patient.[facility] Active Allergies and Adverse Reactions Allergen Noted [...] Active HFA;PROVENTIL into the lungs HFA;VENTOLIN HFA) 108 every 4 (four) (90 BASE) MCG/ACT hours as needed inhaler for Wheezing. lisinopril Take 2.5 mg by Active (PRINIVIL,ZESTRIL) mouth daily. 2.5 MG tablet fenofibrate 160 MG Take 160 mg by Active tablet mouth daily. pantoprazole Take 40 mg by Active (PROTONIX) 40 MG mouth daily. tablet atorvastatin Take 40 mg by Active (LIPITOR) 40 MG mouth daily. tablet FLUoxetine (PROZAC) Take 20 mg by Active 20 MG capsule mouth daily. fluticasone (FLONASE) 2 sprays by Nasal Active 50 MCG/ACT nasal route daily. to spray each nostril latanoprost (XALATAN) Place 1 drop into Active 0.005 % ophthalmic both eyes nightly. solution fluPHENAZine Take 2.5 mg by Active (PROLIXIN) 2.5 MG mouth 2 (two) tablet times daily. insulin lispro Inject 12 Units Active (HUMALOG) 100 UNIT/ML into the skin 3 injection - vial (three) times daily with meals. insulin lispro Inject 2-12 Units Active (HUMALOG) 100 UNIT/ML into the skin 4 injection - vial (four) times daily before meals and nightly. 150-199=2 Rowip615-176=1 Wises380-856=7 Nopeu152-135=3 Fnfqy024-457=75 Yhpab724 and higher=12 Units insulin glargine Inject 42 Units Active (LANTUS) 100 UNIT/ML into the skin injection - vial nightly. miconazole (MICOTIN) Apply to abdominal 71 g 0 05/11/2016 Active 2 % powder folds. propranolol (INDERAL) Take 1 tablet by 90 tablet 1 05/11/2016 Active 10 MG tablet mouth 3 (three) times daily. senna-docusate (SENNA Take 1 tablet by 60 tablet 1 05/11/2016 Active PLUS) 8.6-50 MG per mouth 2 (two) tablet times daily. hydrOXYzine Take 1 capsule by 90 capsule 1 05/11/2016 Active (VISTARIL) 50 MG mouth 3 (three) capsule times daily as needed for Anxiety. Indications: Sedation Active Problems Problem Noted Date MDD (major depressive disorder), severe ([facility]) 05/10/2016 Major depressive disorder, recurrent, severe without psychotic features 2015 ([facility]) COPD (chronic obstructive pulmonary disease) ([facility]) 10/14/2015 Diabetes ([facility]) 10/14/2015 Essential hypertension 10/14/2015 Most Recent Encounters Date Type Specialty Providers Description 07/02/2016 Data Import Immunizations Name Dates Previously Given Next Due PPD Test 11/06/2015 Social History Tobacco Use Types Packs/Day Years Used Date Current Every Day Smoker 0.5 5 Smokeless Tobacco: Never Used Tobacco Cessation:Ready to Quit: No Comments: Alcohol Use Drinks/Week oz/Week Comments No Last Filed Vital Signs Vital Sign Reading Time Taken Blood Pressure 126/82 05/11/2016 8:00 AM [employer] Pulse 84 05/11/2016 8:00 AM [employer] Temperature 36.1 C (97 F) 05/11/2016 8:00 AM [employer] Respiratory Rate 17 05/11/2016 8:00 AM [employer] Height 1.651 m (5' 5") 05/09/2016 4:57 AM [employer] Weight 113.6 kg (250 lb 7.1 oz) 05/09/2016 4:57 AM [employer] Body Mass Index 41.68 05/09/2016 4:57 AM [employer] Oxygen Saturation 94% 05/10/2016 9:16 AM [employer] Plan of Care Health Maintenance Due Date Last Done Comments Tetanus/Pertussis (1 - Tdap) 1993 Pap Smear 08/26/1995 Influenza Immunization (#1) 2015 Results from Last 3 Months POCT glucose (05/11/2016 8:22 AM)Only the most recent of11 resultswithin the time period is included. Component Value Range Glucose, POC 118(H) 70-99 mg/dL
--- NOTE | 2016-07-24 18:08 | ERNOTE ---
Abdominal HPI - General Chief Complaint: Abdominal Pain Time Seen by Provider: 07/24/16 17:52 Source: patient Exam Limitations: no limitations - Immun/Allergies/Home Medications Immunizatons: IMMUNIZATION HX Immunizations Up to Date Yes History of Influenza Vaccine Yes Hx Pneumococcal Vaccination No Allergies/Adverse Reactions: Allergies Penicillins Allergy (Verified 07/24/16 17:41) Home Medications: HOME MEDICATIONS Latanoprost [Xalatan] 1 drop OP HS 12/21/14 [Last Taken Unknown] Lisinopril [Zestril] 2.5 mg PO DAILY 12/21/14 [Last Taken Unknown] Atorvastatin Calcium [Lipitor] 40 mg PO HS 05/22/16 [Last Taken Unknown] Clonazepam 2 mg PO HS 05/22/16 [Last Taken Unknown] Fenofibrate [Lofibra] 160 mg PO DAILY 05/22/16 [Last Taken Unknown] Fluticasone Propionate [Flonase] 2 spray NS DAILY 05/22/16 [Last Taken Unknown] Insulin Lispro [Humalog] 100 unit SQ ACHS 05/22/16 [Last Taken Unknown] Sennosides/Docusate Sodium [Senna-Docusate Sodium Tablet] 1 each PO BID [Last Taken Unknown] Ergocalciferol (Vitamin D2) [Vitamin D2] 50,000 unit PO DAILY 07/24/16 [Last Taken Unknown] Gabapentin 300 mg PO TID 07/24/16 [Last Taken Unknown] Insulin Degludec [Tresiba Flextouch U-100] 10 unit SQ ACHS 07/24/16 [Last Taken Unknown] Nitroglycerin 0.4 mg SL PRN PRN 07/24/16 [Last Taken Unknown] Ondansetron [Zofran Odt] 4 mg PO Q4H PRN #10 tab 07/24/16 [Last Taken Unknown] Paliperidone [Invega] 6 mg PO BID 07/24/16 [Last Taken Unknown] oxyCODONE HCL/ACETAMINOPHEN [Percocet 5 MG/325 MG] 1 tab PO Q4H PRN #6 tab 07/24 [Last Taken Unknown] - History of Present Illness Narrative: Patient is here for abdominal pain that started three days ago. She went to the ER in [facility] and states that the doctor there was mainly concerned with her blood sugar that was over 400. this morning she followed up with her PCP Laura Mayberry and was told that she has pancreatitis again and to stay on a liquid diet. She continues to dry heave and have severe pain, has only been taking ibuprofen for the pain. This is her third episode of pancreatitis in a month. She denies ETOH use and had a cholecystectomy, does not know why she gets pancreatitis. Date (Duration): 07/21/16 Timing: constant Quality: severe Activities at Onset: none Modifying Factors - (Improves): Present: other - nothing Modifying Factors - (Worsens): Present: breathing, coughing, lying down, movement, vomiting Prior Abdominal Problems: Present: similar symptoms Review of Systems - Review of Systems Constitutional: Present: recent illness. Absent: fever, chills ENT: Absent: nose congestion, sore throat Respiratory: Absent: shortness of breath Cardiology: Absent: chest pain, palpitations Gastrointestinal/Abdominal: Present: nausea, vomiting, diarrhea - loose BM, 1-2 daily, no blood Genitourinary: Present: no symptoms reported Musculoskeletal: Present: no symptoms reported Skin: Absent: rash Neurological: Absent: headache, weakness, numbness - Patient's Past Medical History Patient History - Medical: Anxiety, Diabetes Type 2 Insulin Dependent, Depression, Other Patient History - Cardiac/Respiratory: Hypertension Patient History - Cancer: No Hx of Cancer Patient History - Surgical Procedures: Appendectomy, Cholecystectomy, , Hysterectomy Patient History - Other: None - Social History Living Situations: home Abuse History: No History of abuse Psych History: Hx of Anxiety, Hx of Depression, Hx of Bipolar Disorder Smoking Status: Current every day smoker Have you smoked in the past 12 months: Yes Alcohol Use: none Drug Use: none - Immunizations Immunizations Up to Date: Yes Hx Pneumococcal Vaccination: No History of Influenza Vaccine: Yes Physical Exam - Physical Exam General Appearance: Present: wd/wn, alert, mild distress Respiratory: Present: no respiratory distress, normal breath sounds, lungs clear Cardiovascular/Chest: Present: regular rate, rhythm, no murmur Gastrointestinal/Abdominal: Present: normal bowel sounds, nondistended, soft, tenderness - right upper and midabdomen Back Exam: Present: no CVA tenderness Extremity Exam: Present: no edema Neurological Exam: Present: alert, oriented, normal mood/affect Skin Exam: Present: normal color, warm/dry ED Progress - Results and Orders Patient's Lab Results:: I have reviewed the patient's lab results. - Vital Signs Patient's Vital Signs:: I have reviewed the patient's vital signs. Vital Signs: Vital Signs 07/24/16 17:35 Temperature 37.2 C Pulse Rate 114 H Respiratory 16 Rate Blood Pressure 141/88 O2 Sat by Pulse 93 Oximetry - Progress/Reassessment Chief Complaint: Abdominal Pain Progress Note-Subjective: 07/24/16 19:02 reviewed chart from [facility] yesterday: lipase elevated at 67, glucose 509, WBC 11.1 , other labs normal discussed multiple admissions for psych in the last three month, the second time from [facility] in may, then again from [facility] for OD in June, when she spend a month there. Patient has had no vomiting while here,unable to get IV access, treated with oral zofran Departure - Departure Clinical Impression: Abdominal pain Qualifiers: Abdominal location: upper abdomen, unspecified Qualified Code(s): R10.10 - Upper abdominal pain, unspecified Disposition: Home self-care Condition: Fair Instructions: Abdominal Pain, Adult, [id number] Referrals: Laura Mayberry ARNP [Primary Care Provider] - Prescriptions: Ondansetron [Zofran Odt] 4 mg PO Q4H PRN #10 tab PRN Reason: Nausea And Vomiting oxyCODONE HCL/ACETAMINOPHEN [Percocet 5 MG/325 MG] 1 tab PO Q4H PRN #6 tab PRN Reason: Pain
[2016-07-24] MEDS ORDERED: HYDROmorphone HCL 1 MG/ML DISP.SYRIN ONE (18:33)
[2016-07-24] MEDS ORDERED: ONDANSETRON HCL/PF 2 MG/ML VIAL ONE (18:33)
[2016-07-24] MEDS: HYDROmorphone HCL 1 MG/ML DISP.SYRIN IV ONE ×2 (18:34→18:58)
[2016-07-24] MEDS: ONDANSETRON HCL/PF 2 MG/ML VIAL IV ONE ×2 (18:34→18:57)
[2016-07-24 18:35] LABS: Hematocrit 43.2 % (37.0-47.0); Hemoglobin 14.3 gm/dL (12.5-16.0); Mean Cell Volume 93.5 fl (78-100); Mean Corpuscular Hgb Conc 33.1 g/dl (32-36); Neutrophil # 9.2 K/mm3 (1.3-6.0); Neutrophil % 64.7 % (42-75.0); Platelet Count 274 K/mm3 (150-450); Red Blood Count 4.62 M/mm3 (4.2-5.4); Red Cell Distribution Width 13.2 % (11.5-14.0); White Blood Count 14.2 K/mm3 (4.0-10.5)
[2016-07-24 18:50] LABS: Albumin * 3.6 gm/dl (3.4-5.0); BUN/Creatinine Ratio 23.9 (9.0-21.6); Bilirubin, Total 0.3 mg/dL (0.0-1.1); Ca. Corrected For Albumin 9.2 mg/dL (8.4-10.2); Calcium * 9.2 mg/dL (7.9-10.9); Potassium 4.1 mmol/L (3.4-4.6); Total Protein 8.1 gm/dL (6.2-8.2)
[2016-07-24] MEDS ORDERED: ONDANSETRON 4 MG TAB.RAPDIS PO ONE (18:51)
[2016-07-24] MEDS ORDERED: ONDANSETRON 4 MG TAB.RAPDIS ONE (18:52)
[2016-07-24 18:54] LABS: Anion Gap 14.1 mmol/L (6.8-13.8)
== END 2016-07-24 19:10 | disposition home or self-care (01) ==
LOC: ER 17:29
DX: R10.10 Upper abdominal pain, unspecified (principal); F17.200 Nicotine dependence, unspecified, uncomplicated; E11.9 Type 2 diabetes mellitus without complications; Z79.4 Long term (current) use of insulin; I10 Essential (primary) hypertension